=== PATIENT | male | born 1995 | race Caucasian/White ===

== ENCOUNTER 2025-07-23 15:15 | Outpatient (CLI) | payer BC, SELFPAY ==
--- NOTE | 2025-07-23 15:30 | CRLHL7_ITS ---
For Patients: As a result of the Century Cures Act, medical imaging exams and procedure reports are released immediately into your electronic medical record. You may view this report before your referring provider. If you have questions, please contact your health care provider. INDICATION: Low back pain. TECHNIQUE: Noncontrast sagittal and axial T1, T2, and sagittal STIR sequences are provided. No comparisons. FINDINGS: The overall stature, alignment and intrinsic marrow signal of the lumbar spine is within normal limits. Conus is normal. 1.4 cm cystic lesion of the right kidney likely represents a simple renal cyst. L1-2: Mild rightward eccentric posterior disc bulge results in no central canal or foraminal narrowing. L2-3: Unremarkable. L3-4: Mild leftward eccentric disc bulge results in [id number]-[id number] left and mild right lateral recess narrowing with contact of the traversing L4 nerve roots. No central canal or foraminal narrowing. L4-5: Mild broad-based posterior disc bulge results in [id number] left lateral recess narrowing with contact of the traversing left L5 nerve root. No central canal or foraminal narrowing. L5-S1: There is a large left posterior paracentral disc protrusion that extends 12 millimeters beyond the posterior vertebral body margin resulting in profound left lateral recess narrowing and compression of the traversing left S1 and S2 nerve roots with moderate central canal narrowing. Mild underlying broad-based posterior disc bulge with mild facet arthropathy results in mild bilateral foraminal narrowing. IMPRESSION: 1. Large left lateral recess disc protrusion at L5-S1 resulting in profound left lateral recess narrowing with compression of the traversing left S1 and S2 nerve roots. Associated degenerative changes results in mild bilateral foraminal narrowing. 2. Ulry-ho-aswmpqoh left and mild right lateral recess narrowing at L3-4. 3. Mild to moderate left lateral recess narrowing at L4-5. Dictated by Gal Royal MD @ 07/24/2025 9:06:05 AM (Electronically Signed)
== END 2025-07-23 15:16 | disposition home or self-care (01) ==
LOC: MRI 15:16
PROVIDERS: Visit Provider Family Medicine
DX: M51.26 Other intervertebral disc displacement, lumbar region (principal); M79.605 Pain in left leg
CPT/HCPCS: 72148